=== PATIENT | female | born 1940 | race Two or more races ===

== ENCOUNTER 2016-06-13 09:13 | Emergency (ER) | payer MEDICARE ==
[2016-06-13] MEDS ORDERED: ENEMA--adult 1 EACH ONE (10:15)
--- NOTE | 2016-06-13 11:40 | RAD ---
06/13/2016 11:36 AM ABDOMEN OR KUB HISTORY: History of spinal surgery. Constipation. Last bowel movement 5 days ago. Patient is on morphine derived pain medication. COMPARISON: No comparison TECHNIQUE: Supine views FINDINGS: There are nondilated loops of small and large bowel containing gas and stool. There are no dilated loops to suggest ileus or obstruction. There is no evidence of free intra-abdominal gas. Large amount of stool is noted within the ascending colon. Moderate amount of stool is noted within the transverse and descending colon. Mild amount stool is noted at the level of the rectosigmoid. Postsurgical change from pedicle screw and jaclyn fixation at L4-5 is present with prosthetic disc spacer material. Right-sided nerve stimulator device is also identified. Osseous structures are intact. IMPRESSION: Nonspecific, nonobstructive bowel gas pattern with air and stool as above.
== END 2016-06-13 11:15 | disposition home or self-care (01) ==
LOC: ED 09:13
DX: K59.00 Constipation, unspecified (principal)
CPT/HCPCS: 74000; 99283 ×2; A9270